=== PATIENT | female | born 1985 | race Caucasian/White ===

== ENCOUNTER 2021-01-22 10:41 | Observation (INO) | payer OTHER ==
[2021-01-22] MEDS ORDERED: SODIUM CHLORIDE 0.9% 1,000 ML IV STA (11:15)
[2021-01-22 11:36] LABS: Basophils % (A) 1 %; Eosinophils # (A) 0.1 k/uL (0-0.7); Eosinophils % (A) 2 %; HCT 45.9 % (34.0-46.0); HGB 15.4 gm/dL (11.4-16.0); Lymphocytes # (A) 1.8 k/uL (1.0-4.8); Lymphocytes % (A) 38 %; MCH 30.9 pg (25.0-35.0); MCHC 33.6 g/dL (31.0-37.0); MCV 91.9 fL (80.0-100.0); Mean Platelet Volume 7.2; Monocytes # (A) 0.2 k/uL (0-1.0); Monocytes % (A) 5 %; Neutrophils # (A) 2.4 k/uL (1.3-7.7); Neutrophils % (A) 51 %; Platelet Count 214 k/uL (150-450); RDW 13.9 % (11.5-15.5); WBC 4.6 k/uL (3.8-10.6)
--- NOTE | 2021-01-22 11:39 | ED ---
Alcohol HPI - General Chief Complaint: Alcohol Stated Complaint: ETOH Time Seen by Provider: 01/22/21 10:54 Source: patient, RN notes reviewed Mode of arrival: ambulatory Limitations: no limitations - History of Present Illness Initial Comments: This a 35-year-old female presents emergency Department from [place] chief complaint of alcohol intoxication. Patient was going for rehab today but found to have alcohol over 300. Patient was sent over here for evaluation. She is a daily drinker he states that she wanted rehab in the year states that she cannot she started drinking denies any complaints or homicidal denies any physical complaints including abdominal pain, nausea vomiting. Patient states she drank throughout the night and to drink this morning because she was nervous about her withdrawal symptoms. Patient states she is very shaky, increased pain and nausea vomiting. - Related Data Home Medications Medication Instructions Recorded Confirmed No Known Home Medications 01/22/21 01/22/21 Allergies Allergy/AdvReac Type Severity Reaction Status Date / Time Penicillins Allergy Unknown Verified 01/22/21 11:19 Sulfa (Sulfonamide Allergy Unknown Verified 01/22/21 11:19 Antibiotics) Review of Systems ROS Statement: Those systems with pertinent positive or pertinent negative responses have been documented in the HPI. ROS Other: All systems not noted in ROS Statement are negative. Past Medical History Past Medical History: No Reported History History of Any Multi-Drug Resistant Organisms: None Reported Past Surgical History: No Surgical Hx Reported Past Psychological History: Anxiety, Depression Smoking Status: Current every day smoker Past Alcohol Use History: Abuse, Daily, Heavy Past Drug Use History: None Reported General Exam Limitations: no limitations General appearance: alert, in no apparent distress Head exam: Present: atraumatic, normocephalic, normal inspection ENT exam: Present: normal exam, mucous membranes moist Neck exam: Present: normal inspection. Absent: tenderness, meningismus, lymphadenopathy Respiratory exam: Present: normal lung sounds bilaterally. Absent: respiratory distress, wheezes, rales, rhonchi, stridor Cardiovascular Exam: Present: normal rhythm, tachycardia, normal heart sounds. Absent: systolic murmur, diastolic murmur, rubs, gallop, clicks GI/Abdominal exam: Present: soft, normal bowel sounds. Absent: distended, tenderness, guarding, rebound, rigid Neurological exam: Present: alert, oriented X3 Skin exam: Present: warm, dry, intact, normal color. Absent: rash Course Vital Signs 01/22/21 10:50 Temperature 98.6 F Pulse Rate 119 H Respiratory 16 Rate Blood Pressure 154/93 O2 Sat by Pulse 95 Oximetry Medical Decision Making - Lab Data Result diagrams: 01/22/21 11:29 01/22/21 11:29 Lab Results 01/22/21 01/22/21 Range/Units 11:29 11:29 WBC 4.6 (3.8-10.6) k/uL RBC 5.00 (3.80-5.40) m/uL Hgb 15.4 (11.4-16.0) gm/dL Hct 45.9 (34.0-46.0) % MCV 91.9 (80.0-100.0) fL MCH 30.9 (25.0-35.0) pg MCHC 33.6 (31.0-37.0) g/dL RDW 13.9 (11.5-15.5) % Plt Count 214 (150-450) k/uL MPV 7.2 Neutrophils % 51 % Lymphocytes % 38 % Monocytes % 5 % Eosinophils % 2 % Basophils % 1 % Neutrophils # 2.4 (1.3-7.7) k/uL Lymphocytes # 1.8 (1.0-4.8) k/uL Monocytes # 0.2 (0-1.0) k/uL Eosinophils # 0.1 (0-0.7) k/uL Basophils # 0.0 (0-0.2) k/uL Sodium 143 (137-145) mmol/L Potassium 4.0 (3.5-5.1) mmol/L Chloride 106 (98-107) mmol/L Carbon Dioxide 24 (22-30) mmol/L Anion Gap 13 mmol/L BUN 3 L (7-17) mg/dL Creatinine 0.52 (0.52-1.04) mg/dL Est GFR (CKD-EPI)AfAm >90 (>60 ml/min/1.73 sqM) Est GFR (CKD-EPI)NonAf >90 (>60 ml/min/1.73 sqM) Glucose 98 (74-99) mg/dL Calcium 9.1 (8.4-10.2) mg/dL Magnesium 1.8 (1.6-2.3) mg/dL Total Bilirubin 0.5 (0.2-1.3) mg/dL AST 176 H (14-36) U/L ALT 92 H (4-34) U/L Alkaline Phosphatase 160 H (38-126) U/L Total Protein 7.2 (6.3-8.2) g/dL Albumin 4.5 (3.5-5.0) g/dL Lipase 157 (23-300) U/L Serum Alcohol 354 H* mg/dL Disposition Clinical Impression: Alcoholic intoxication, Alcohol withdrawal syndrome Disposition: ADMITTED IP TO THIS HOSP Referrals: None,Stated [Primary Care Provider] - 1-2 days
[2021-01-22] MEDS ORDERED: THIAMINE 200 MG in SODIUM CHLORIDE 0.9% 100 ML IVPB ONE (11:40)
[2021-01-22 11:50] LABS: ALT 92 U/L (4-34); AST 176 U/L (14-36); African American GFR (CKD) >90 (>60 ml/min/1.73 sqM); Albumin 4.5 g/dL (3.5-5.0); Alkaline Phosphatase 160 U/L (38-126); Anion Gap 13 mmol/L; Blood Urea Nitrogen 3 mg/dL (7-17); Calcium 9.1 mg/dL (8.4-10.2); Carbon Dioxide 24 mmol/L (22-30); Chloride 106 mmol/L (98-107); Glucose 98 mg/dL (74-99); Lipase 157 U/L (23-300); Magnesium 1.8 mg/dL (1.6-2.3); Non-African American GFR(CKD) >90 (>60 ml/min/1.73 sqM); Sodium 143 mmol/L (137-145); Total Bilirubin 0.5 mg/dL (0.2-1.3); Total Protein 7.2 g/dL (6.3-8.2)
[2021-01-22 12:00] LABS: Alcohol 354 mg/dL
[2021-01-22] MEDS ORDERED: LORazepam 2 MG/ML INJ IV PRN ×2 (12:14)
[2021-01-22] MEDS ORDERED: ONDANSETRON 4 MG/2 ML VIAL IVP PRN (12:15)
[2021-01-22] MEDS ORDERED: NALOXONE 0.4 MG/ML 1 ML VIAL IV PRN (12:15)
[2021-01-22] MEDS: LORazepam 2 MG/ML INJ IV PRN ×2 (12:27→21:48)
[2021-01-22] MEDS ORDERED: SODIUM CHLORIDE 0.9% 1,000 ML IV SCH (12:30)
--- NOTE | 2021-01-22 16:24 | P.HPIM ---
History of Present Illness H&P Date: 01/22/21 Chief Complaint: alcohol intoxication Patient is a 35-year-old female with a history of alcohol use disorder, anxiety, depression, and tobacco abuse who presented from [place] secondary to alcohol intoxication. They were not able to admit her due to her elevated alcohol levels and brought her to the emergency department. On arrival here she was noted be tachycardic with a pulse of 118 and a blood pressure 154/93. Laboratory analysis showed an elevated AST of 176 and ALT of 92. Serum alcohol level was 354. In the ER she was given a liter of IV fluids and was admitted for observation. Patient seen and examined at bedside. She reports that her last drink was at 4:30 AM. She is already having some nausea, headache, and feeling very tired and fatigued. She reports that she's been drinking 1 pint to 1/5 daily. It has been about 10 months and she's had a significant amount of sobriety. She has never drank this heavily in the past. She denies any cough, cold, fever, flu. She has never required hospitalization for withdrawals in the past. She reports that she has not been eating much but has been drinking heavily. Pertinent positives and negatives as discussed in HPI, a complete review of systems was performed and all other systems are negative. General: non toxic, no distress, appears at stated age Derm: warm, dry Head: atraumatic, normocephalic, symmetric Eyes: EOMI, no lid lag, anicteric sclera, pupils equal round reactive to light ENT: Nose and ears atraumatic, no thrush, no pharyngeal erythema Neck: No thyromegaly, no cervical lymphadenopathy, trachea midline, supple Mouth: no lip lesion, mucus membranes moist Cardiovascular: S1S2 tachycardic, no murmur, positive posterior tibial pulse bilateral, no edema, capillary refill less than 2 seconds Lungs: clear to ascultation bilateral, no ronchi, no rales, no wheeze, no accessory muscle use Abdominal: soft, tender to palpation diffusely, no guarding, no appreciable organomegaly, normal bowel sounds Ext: no gross muscle atrophy, muscle strength muscle strength 5 out of 5 in all 4 extremities, no contractures Neuro: CN II-XI grossly intact, light touch intact all 4 extremities, finger to nose within normal limits, Psych: Alert, oriented, upset and tearful which appears to be appropriate Acute Alcohol intoxication with impending DTs -Start Librium 50 mg 3 times a day -CIWA protocol -MVI bag -PPI -Social work consult Transaminitis - suspect due to alcohol Tobacco abuse - cessation - nicotine replacement Patient is already experiencing some withdrawal yet blood-alcohol level has not reached 0. She expresses desire to quit. I anticipate that her stay will need to be greater than 2 midnight as her CIWA score will likely increase. The patient is placed in observation with an anticipated less than 2 midnight stay for evaluation of alcohol wihtdrawal. Surrogate decision-maker: aunt DVT prophylaxis: SCDs Discussed with: patient, nursing, eed physician Anticipated discharge date: 3-[address]: home A total of 65 minutes was spent on the care of this complex patient more than 50% of the time was spent in counseling and care coordination. Past Medical History Past Medical History: No Reported History History of Any Multi-Drug Resistant Organisms: None Reported Past Surgical History: No Surgical Hx Reported Past Psychological History: Anxiety, Depression Smoking Status: Current every day smoker Past Alcohol Use History: Abuse, Daily, Heavy Past Drug Use History: None Reported - Past Family History family Additional Family Medical History / Comment(s): no hx of cirrhosis Medications and Allergies Home Medications Medication Instructions Recorded Confirmed Type No Known Home Medications 01/22/21 01/22/21 History Allergies Allergy/AdvReac Type Severity Reaction Status Date / Time Penicillins Allergy Unknown Verified 01/22/21 11:19 Sulfa (Sulfonamide Allergy Unknown Verified 01/22/21 11:19 Antibiotics) Physical Exam Osteopathic Statement: *. No significant issues noted on an osteopathic structural exam other than those noted in the History and Physical/Consult. Vitals: Vital Signs Temp Pulse Pulse Resp BP BP Pulse Ox 01/22/21 15:32 98.5 F 117 H 135/95 97 01/22/21 14:30 98.1 F 89 20 135/72 99 01/22/21 14:00 116 H 01/22/21 13:00 98 20 135/78 97 01/22/21 12:30 101 H 20 145/68 96 01/22/21 10:50 98.6 F 119 H 16 154/93 95 Intake and Output 08/01/21 08/01/21 08/01/21 06:59 14:59 22:59 Other: Voiding Method Toilet # Voids 0 Weight 58.967 kg 58.967 kg Results CBC & Chem 7: 01/22/21 11:29 01/22/21 11:29 Labs: Abnormal Lab Results - Last 24 Hours (Table) 01/22/21 Range/Units 11:29 BUN 3 L (7-17) mg/dL AST 176 H (14-36) U/L ALT 92 H (4-34) U/L Alkaline Phosphatase 160 H (38-126) U/L Serum Alcohol 354 H* mg/dL
[2021-01-22] MEDS: NICOTINE 21MG/24HR PATCH TRANSDERM SCH (16:36)
[2021-01-22] MEDS: 1: MVI, ADULT NO.4 WITH VIT K 10 ML, THIAMINE 100 MG, FOLIC ACID 1 MG in SODIUM CHLORIDE IV SCH ×4 (17:06)
[2021-01-22] MEDS ORDERED: THIAMINE 100 MG TAB PO SCH (17:30)
[2021-01-23] MEDS: 1: MVI, ADULT NO.4 WITH VIT K 10 ML, THIAMINE 100 MG, FOLIC ACID 1 MG in SODIUM CHLORIDE IV SCH ×4 (03:24)
[2021-01-23] MEDS: NICOTINE 21MG/24HR PATCH TRANSDERM SCH (07:55)
--- NOTE | 2021-01-23 08:55 | P.PN ---
Subjective Progress Note Date: 01/23/21 Principal diagnosis: alcohol intoxication Patient is a 35-year-old female with a history of alcohol use disorder, anxiety, depression, and tobacco abuse who presented from [place] secondary to alcohol intoxication. They were not able to admit her due to her elevated alcohol levels and brought her to the emergency department. On arrival here she was noted be tachycardic with a pulse of 118 and a blood pressure 154/93. Laboratory analysis showed an elevated AST of 176 and ALT of 92. Serum alcohol level was 354. In the ER she was given a liter of IV fluids and was admitted for observation. She was demonstrating symptoms of alcohol withdrawal and she was started on Librium as well as CIWA protocol. Patient seen and examined at bedside. She reports that she is continuing to have a headache, nausea, fidgeting, and some abdominal discomfort. She is nervous about leaving the hospital too early. She does continue to plan to go back to [place]. General: non toxic, no distress, appears at stated age Derm: warm, dry Head: atraumatic, normocephalic, symmetric Eyes: EOMI, no lid lag, anicteric sclera Mouth: no lip lesion, mucus membranes moist Cardiovascular: S1S2 reg, no murmur, positive posterior tibial pulse bilateral, Lungs: CTA bilateral, no rhonchi, no rales , no accessory muscle use Abdominal: soft, nontender to palpation, no guarding, no appreciable organomegaly Ext: no gross muscle atrophy, no edema, no contractures Neuro: CN II-XI grossly intact, no focal neuro deficits, no tremors, no diaphoresis Psych: Alert, oriented, appropriate affect Alcohol withdrawal Acute Alcohol intoxication -Librium 50 mg 3 times a day -CIWA protocol -MVI bag stopped and change to oral -PPI -Social work consult Transaminitis - suspect due to alcohol - await repeat AM labs - patient reports hx of elevated liver enzymes Tobacco abuse - cessation - nicotine replacement Await AM Labs Not stable to go as she feels that ETOH withdrawal symptoms are increasing and she is only at 24 hours since last drink. Anticipate discharge in AM if CIWA sco re remains low. DVT prophylaxis: SCDs Discussed with: patient, nursing Anticipated discharge date: 1-[address]: home A total of 35 minutes was spent on the care of this complex patient more than 50% of the time was spent in counseling and care coordination. Objective - Vital Signs Vital signs: Vital Signs Temp 97.7 F 01/23/21 07:00 Pulse 84 01/23/21 07:00 Resp 15 01/23/21 07:00 BP 136/92 01/23/21 07:00 Pulse Ox 96 01/23/21 07:00 Intake & Output 01/22/21 01/23/21 01/23/21 18:59 06:59 18:59 Weight 58.967 kg Other: Voiding Method Toilet Toilet # Voids 0 1 - Labs CBC & Chem 7: 01/22/21 11:29 01/22/21 11:29 Labs: Abnormal Lab Results - Last 24 Hours (Table) 01/22/21 Range/Units 11:29 BUN 3 L (7-17) mg/dL AST 176 H (14-36) U/L ALT 92 H (4-34) U/L Alkaline Phosphatase 160 H (38-126) U/L Serum Alcohol 354 H* mg/dL
[2021-01-23 09:01] LABS: HCT 39.8 % (37.2-46.3); HGB 13.2 g/dL (12.0-15.0); MCH 30.2 pg (27.0-32.0); MCHC 33.2 g/dL (32.0-37.0); MCV 91.1 fL (80.0-97.0); Mean Platelet Volume 10.5 fL (9.5-12.2); Platelet Count 149 X 10*3/uL (140-440); RBC 4.37 X 10*6/uL (4.10-5.20); RDW 14.3 % (11.5-14.5); WBC 4.61 X 10*3/uL (4.50-10.00)
[2021-01-23 09:31] LABS: African American GFR (CKD) 137.8 (60.0-200.0); Albumin 3.8 g/dL (3.80-4.90); Albumin/Globulin Ratio 1.73 (1.60-3.17); Anion Gap 8.3 mmol/L (4.00-12.00); BUN/Creat Ratio 11.67 Ratio (12.00-20.00); Calcium 8.7 mg/dL (8.7-10.3); Carbon Dioxide 25.7 mmol/L (21.6-31.8); Globulin 2.2 g/dL (1.6-3.3); Magnesium 1.7 mg/dL (1.5-2.4); Non-African American GFR(CKD) 118.9 (60.0-200.0); Phosphorus 4.2 mg/dL (2.4-5.1); Potassium 3.6 mmol/L (3.5-5.5); Total Bilirubin 1.4 mg/dL (0.3-1.2)
[2021-01-23] MEDS: MULTIVITAMINS, THERA 1 EACH TAB PO SCH (11:39)
[2021-01-23] MEDS: FOLIC ACID 1 MG TAB PO SCH (11:39)
[2021-01-23] MEDS: THIAMINE 100 MG TAB PO SCH (18:09)
[2021-01-24 07:46] VITALS: BP 128/85; PULSE 82; RESP 15; TEMP 98.5
[2021-01-24] MEDS: THIAMINE 100 MG TAB PO SCH (08:05)
[2021-01-24] MEDS: NICOTINE 21MG/24HR PATCH TRANSDERM SCH (08:05)
[2021-01-24] MEDS: FOLIC ACID 1 MG TAB PO SCH (08:05)
[2021-01-24] MEDS: MULTIVITAMINS, THERA 1 EACH TAB PO SCH (08:05)
--- NOTE | 2021-01-24 10:50 | P.DS ---
Providers Date of admission: 01/22/21 12:18 Expected date of discharge: 01/24/21 Attending physician: Michelle Alejandra DO Primary care physician: Stated None Hospital Course: This is a 35-year-old female with past medical history significant for heavy alcohol use, anxiety, and depression who presented to the emergency room sent from [place] for alcohol intoxication. Patient was evaluated in the ER and placed on observation. She was treated with aggressive IV fluid hydration and Librium. She was monitored for alcohol withdrawal symptoms. She did not require any Ativan in the last 24 hours. She was counseled extensively reg arding alcohol cessation. She will be discharged back to [place] in a stable condition. For further details about this hospitalization please refer to the electronic chart. Patient was seen, evaluated, and examined by me today. General: The patient is awake and alert, in no distress Eye: there is normal conjunctiva bilaterally. Neck: The neck is supple, there is no JVD. Cardiovascular: Normal S1-S2, no S3-S4, no murmurs. Respiratory: Lungs clear to auscultation bilaterally Gastrointestinal: Abdomen is soft, nontender Musculoskeletal: There is no pedal edema. Neurological:. Speech is normal. Skin: Skin is warm and dry Patient Condition at Discharge: Fair Plan - Discharge Summary Discharge Rx Participant: No New Discharge Prescriptions: New Multivitamins, Thera [Multivitamin (formulary)] 1 each PO DAILY #30 tab Thiamine [Vitamin B-1] 100 mg PO BID-W/MEALS #14 tab Folic Acid 1 mg PO DAILY #30 tab Discharge Medication List Folic Acid 1 mg PO DAILY #30 tab 01/24/21 [Rx] Multivitamins, Thera [Multivitamin (formulary)] 1 each PO DAILY #30 tab 01/24/21 [Rx] Thiamine [Vitamin B-1] 100 mg PO BID-W/MEALS #14 tab 01/24/21 [Rx] Follow up Appointment(s)/Referral(s): None,Stated [Primary Care Provider] - 1-2 days Patient Instructions/Handouts: Alcohol Intoxication (DC) Discharge Disposition: OTHER INSTITUTION NOT DEFINED
[2021-01-24] MEDS ORDERED: THIAMINE 100 MG TAB PO SCH (17:30)
== END 2021-01-24 14:08 | disposition other institution (70) ==
LOC: EC 10:41 → 6NMEDSUR 12:18
PROVIDERS: ADMIT Internal Medicine; ATTEND Internal Medicine
DX: F10.129 Alcohol abuse with intoxication, unspecified (principal); F10.239 Alcohol dependence with withdrawal, unspecified; F17.200 Nicotine dependence, unspecified, uncomplicated; F32.9 Major depressive disorder, single episode, unspecified; F41.9 Anxiety disorder, unspecified; Y90.8 Blood alcohol level of 240 mg/100 ml or more
CPT/HCPCS: 99284; 96376 ×2; 96361; 96365; 96375; 36415; 80053 ×2; 83690; 83735 ×2; 84100; 85025; 85027; G0378 ×3; G0480; S4990 ×3; J2060 ×2; J3411; 80320